=== PATIENT | female | born 1945 | race Caucasian/White ===

== ENCOUNTER 2017-08-22 14:13 | Emergency (ER) | payer OTHER ==
[2017-08-22 14:34] VITALS: TEMP 98.8
--- NOTE | 2017-08-22 14:49 | ED PDOC ---
Arrival/HPI - General Chief Complaint: High Blood Pressure Time Seen by Provider: 08/22/17 14:18 Historian: Family, Bicycle Technician (son translates) - History of Present Illness Time/Duration: Prior to Arrival Associated Symptoms (Text): 08/22/17 14:51 Son translates and reports that his mother is here visiting from [place] arriving approximately 10 days ago and will be here for approximately 4 months. She has a history of hypertension and diabetes. She took her last insulin and metformin this morning. He reports a generalized shaking episode 2 days ago which lasted for approximately 2 minutes. No seizure history. No bowel or bladder incontinence. No fever or chills. No injury or trauma. She does not have a primary caregiver here. She needs her medication. Past Medical History - Infectious Disease Hx of Infectious Diseases: None - Reproductive Menopause: Yes - Cardiac Hx Hypertension: Yes - Endocrine/Metabolic Hx Diabetes Mellitus Type 1: Yes - Psychiatric Hx Substance Use: No Family/Social History - Physician Review Nursing Documentation Reviewed: Yes Family/Social History: Unknown Family HX Smoking Status: Never Smoked Hx Alcohol Use: No Hx Substance Use: No Allergies/Home Meds Allergies/Adverse Reactions: Allergies No Known Allergies Allergy (Verified 08/22/17 14:34) Home Medications: Home Meds Medication Instructions Recorded Confirmed Insulin NPH Hum/Reg Insulin Hm 32 units SC ACB 08/22/17 08/22/17 [Humulin 70/30 70 U/ml-30 U/ml 10 ml] MetFORMIN [glucOPHAGE] 850 mg PO HS 08/22/17 08/22/17 Review of Systems - Physician Review All systems were reviewed & negative as marked: Yes - Review of Systems Constitutional: Normal Respiratory: Normal Cardiovascular: Normal Gastrointestinal: Normal Genitourinary Female: Normal Neurological: Normal Physical Exam Vital Signs Temp Pulse Pulse Resp BP Pulse Ox 08/22/17 16:25 68 18 160/85 H 98 08/22/17 14:30 65 08/22/17 14:28 98.8 F 70 16 125/78 97 Temperature: Afebrile Blood Pressure: Normal Pulse: Regular Respiratory Rate: Normal Appearance: Positive for: Well-Appearing, Non-Toxic, Comfortable Pain Distress: None Mental Status: Positive for: other (awake alert and cooperative) - Systems Exam Head: Present: Atraumatic, Normocephalic Pupils: Present: PERRL Extroacular Muscles: Present: EOMI Conjunctiva: Present: Normal Mouth: Present: Moist Mucous Membranes Pharnyx: No: ERYTHEMA, EXUDATE, TONSILS ENLARGED Neck: Present: Normal Range of Motion Respiratory/Chest: Present: Clear to Auscultation, Good Air Exchange. No: Respiratory Distress, Accessory Muscle Use Cardiovascular: Present: Regular Rate and Rhythm, Normal S1, S2. No: Murmurs Abdomen: Present: Normal Bowel Sounds. No: Tenderness, Distention, Peritoneal Signs, Rebound, Guarding Back: Present: Normal Inspection Upper Extremity: Present: Normal Inspection. No: Cyanosis, Edema Lower Extremity: Present: Normal Inspection. No: Edema Neurological: Present: GCS=15, CN II-XII Intact, Speech Normal, Motor Func Grossly Intact Skin: Present: Warm, Dry, Normal Color. No: Rashes Medical Decision Making ED Course and Treatment: 08/22/17 15:45 EKG shows normal sinus rhythm with a sinus arrhythmia and PACs with no acute ST or T-wave changes rate approximately 65 CHEST X-RAY Dictator : Diamond Lynn MD Report Date : 08/22/2017 16:02:19 IMPRESSION: Mild increased interstitial markings may reflect infection or edema. Bilateral hilar prominence. CT HEAD WITHOUT CONTRAST. Dictator : Diamond Lynn MD Report Date : 08/22/2017 16:29:09 IMPRESSION: No acute intracranial pathology identified. 08/22/17 16:32 Patient has run out of her metformin and NovoLog 70/30. She will be given prescriptions and the phone number and information for the clinic. Follow up in the ER as needed. - Lab Interpretations Lab Results: 08/22/17 14:50 08/22/17 15:35 Lab Results 08/22/17 15:35: Sodium 143, Potassium 4.5, Chloride 107, Carbon Dioxide 25, Anion Gap 16, BUN 27 H, Creatinine 1.7 H, Est GFR ( Amer) 36, Est GFR ( Non-Af Amer) 29, Random Glucose 55 L, Calcium 9.2, Magnesium 1.9, Total Bilirubin 0.3, AST 22, ALT 25, Alkaline Phosphatase 66, Lactate Dehydrogenase 447, Total Creatine Kinase 48, Troponin I < 0.01, Total Protein 7.5, Albumin 4.0 , Globulin 3.5, Albumin/Globulin Ratio 1.1 08/22/17 14:50: WBC 6.2, RBC 4.11, Hgb 10.9 L, Hct 33.7 L, MCV 82.0, MCH 26.5, MCHC 32.3, RDW 16.2 H, Plt Count 348, MPV 9.9, Gran % 41.4 L, Lymph % (Auto) 47.5 H, [place] % (Auto) 7.9 H, Eos % (Auto) 2.4, Baso % (Auto) 0.8, Gran # 2.55, Lymph # 2.9, [place] # 0.5, Eos # 0.2, Baso # 0.05 - RAD Interpretation Radiology Orders: 08/22/17 14:46 HEAD W/O CONTRAST [CT] Stat CHEST PORTABLE [RAD] Stat CT scan of the head as read by the radiologist shows no acute findings. [place] Maker: Radiologist Disposition/Present on Arrival - Present on Arrival Any Indicators Present on Arrival: No History of DVT/PE: No History of Uncontrolled Diabetes: No Urinary Catheter: No History of Decub. Ulcer: No History Surgical Site Infection Following: None - Disposition Have Diagnosis and Disposition been Completed?: Yes Diagnosis: Diabetes, Hypertension, Seizure Disposition: HOME/ ROUTINE Disposition Time: 16:33 Patient Plan: Discharge Patient Problems: Current Active Problems Problem Status Onset Diabetes Acute Hypertension Acute Seizure Acute Condition: GOOD Discharge Instructions (ExitCare): Diabetes Mellitus Type 1 in Adults (ED), Hypertension (ED), New-Onset Seizure in Adults (ED) Prescriptions: metFORMIN [glucOPHAGE] 850 mg PO DAILY #14 tab Insulin Aspart [Novolog FLEXPEN] 32 unit SQ DAILY #1 ml Referrals: [facility] [place] [facility] [place] - Follow up with primary Forms: [employer] ([place] Zealander)
[2017-08-22 15:40] LABS: BASO # 0.05 K/mm3 (0.0-2.0); BASO % 0.8 % (0.0-3.0); EOS # 0.2 (0.0-0.7); EOS % 2.4 % (1.5-5.0); GRAN # 2.55 (1.4-6.5); GRAN % 41.4 % (50.0-68.0); HEMATOCRIT 33.7 % (36.0-48.0); LYMPH # 2.9 (1.2-3.4); LYMPH % 47.5 % (22.0-35.0); MEAN CORPUSCULAR HEMOGLOBIN 26.5 pg (25.0-35.0); MEAN CORPUSCULAR HGB CONC 32.3 g/dl (31.0-37.0); MEAN PLATELET VOLUME 9.9 fl (7.0-11.0); MONO # 0.5 (0.1-0.6); MONO % 7.9 % (1.0-6.0); RED CELL DISTRIBUTION WIDTH 16.2 % (11.5-14.5); WHITE BLOOD COUNT 6.2 10^3/ul (4.5-11.0)
[2017-08-22 16:01] LABS: ALB/GLOB RATIO 1.1 (1.1-1.8); ALKALINE PHOSPHATASE 66 U/L (38-126); ALT/SGPT 25 U/L (7-56); AST/SGOT 22 U/L (14-36); BILIRUBIN,TOTAL 0.3 mg/dL (0.2-1.3); BLOOD UREA NITROGEN 27 mg/dL (7-21); CALCIUM 9.2 mg/dL (8.4-10.5); CARBON DIOXIDE 25 mmol/L (21-33); CHLORIDE 107 mmol/L (98-107); GFR AFRICAN-AMERICAN 36; GLUCOSE,RANDOM 55 mg/dL (70-110); MAGNESIUM 1.9 mg/dL (1.7-2.2); POTASSIUM 4.5 mmol/L (3.6-5.0); SODIUM 143 mmol/L (132-148); TOTAL PROTEIN 7.5 g/dL (5.8-8.3)
--- NOTE | 2017-08-22 16:03 | RAD ---
HISTORY: seizure COMPARISON: None available. TECHNIQUE: Chest, one view. FINDINGS: Examination limited by habitus. LUNGS: Mild increased interstitial markings may reflect infection or edema. Bilateral hilar prominence. PLEURA: No significant pleural effusion identified. No definite pneumothorax . CARDIOVASCULAR: Heart size appears top normal. OSSEOUS STRUCTURES: Degenerative changes. VISUALIZED UPPER ABDOMEN: Unremarkable. OTHER FINDINGS: None. IMPRESSION: Mild increased interstitial markings may reflect infection or edema. Bilateral hilar prominence.
[2017-08-22 16:16] LABS: TROPONIN I < 0.01 ng/mL
[2017-08-22 16:26] VITALS: BP 160/85; RESP 18; O2SAT 98
[2017-08-22 16:28] VITALS: PULSE 65
--- NOTE | 2017-08-22 16:30 | CT ---
PROCEDURE: CT HEAD WITHOUT CONTRAST. HISTORY: seizure COMPARISON: None available. TECHNIQUE: Axial computed tomography images were obtained through the head/brain without intravenous contrast. Radiation dose: Total exam DLP = 823.45 mGy-cm. This CT exam was performed using one or more of the following dose reduction techniques: Automated exposure control, adjustment of the mA and/or kV according to patient size, and/or use of iterative reconstruction technique. FINDINGS: HEMORRHAGE: No intracranial hemorrhage. BRAIN: Diffuse atrophy with prominence of the ventricles and sulci noted. No mass effect or edema. Mild scattered white matter hypodensities, which are nonspecific, but often seen with chronic microvascular ischemic disease. Please note that MRI with diffusion imaging is more sensitive in the detection of acute ischemic event. VENTRICLES: No hydrocephalus. CALVARIUM: Unremarkable. PARANASAL SINUSES: Unremarkable as visualized. No significant inflammatory changes. MASTOID AIR CELLS: Unremarkable as visualized. No inflammatory changes. OTHER FINDINGS: None. IMPRESSION: No acute intracranial pathology identified.
--- NOTE | 2017-08-23 19:52 | CARD ---
APPROVED REPORT EKG Measurement Heart [id number] <Conclusion> Sinus rhythm with marked sinus arrhythmia Otherwise normal ECG
== END 2017-08-22 16:49 | disposition home or self-care (01) ==
LOC: ED 14:13
DX: I10 Essential (primary) hypertension (principal); E11.9 Type 2 diabetes mellitus without complications; R56.9 Unspecified convulsions

== ENCOUNTER 2017-11-04 10:59 | Emergency (ER) | payer OTHER ==
[2017-11-04 11:28] VITALS: TEMP 98.1
[2017-11-04 12:20] VITALS: BP 153/78; PULSE 69; RESP 18; O2SAT 98
--- NOTE | 2017-11-04 12:20 | ED PDOC ---
Arrival/HPI - General Chief Complaint: Headache Time Seen by Provider: 11/04/17 11:08 Historian: Patient, Family, Other (son translating ) - History of Present Illness Narrative History of Present Illness (Text): you were here with your and son and have a history of catarct surgery in both your eyes about 1 year ago, were treated in the ED today for pressure in both eyes and change in vision but otherwise without any pain or foreign body sensation in your eyes/nausea/vomiting/headache/dizziness/difficulty breathing/chest pain/abdomen pain/numbness/tingling/loss of limb function/pain with urination. 11/04/17 12:15 Past Medical History - Provider Review Nursing Documentation Reviewed: Yes - Travel History Have you recently traveled outside [place] w/in the past 3 mons?: Yes - Infectious Disease Hx of Infectious Diseases: None - Reproductive Menopause: Yes - Cardiac Hx Hypertension: Yes - Endocrine/Metabolic Hx Diabetes Mellitus Type 1: Yes - Psychiatric Hx Substance Use: No Family/Social History - Physician Review Nursing Documentation Reviewed: Yes Family/Social History: No Known Family HX Smoking Status: Never Smoked Hx Alcohol Use: No Hx Substance Use: No Allergies/Home Meds Allergies/Adverse Reactions: Allergies No Known Allergies Allergy (Verified 08/22/17 14:34) Home Medications: Home Meds Medication Instructions Recorded Confirmed Insulin NPH Hum/Reg Insulin Hm 32 units SC ACB 08/22/17 11/04/17 [Humulin 70/30 70 U/ml-30 U/ml 10 ml] Review of Systems - Review of Systems Constitutional: Normal Eyes: Vision Changes, Photophobia, Other (pressure) ENT: Normal Respiratory: Normal Cardiovascular: Normal Gastrointestinal: Normal Genitourinary Female: Normal Musculoskeletal: Normal Skin: Normal Neurological: Normal Endocrine: Normal Hemo/Lymphatic: Normal Psychiatric: Normal Physical Exam Vital Signs Reviewed: Yes Vital Signs Temp Pulse Resp BP Pulse Ox 11/04/17 11:14 98.1 F 72 16 155/82 H 97 Temperature: Afebrile Blood Pressure: Hypertensive Pulse: Regular Respiratory Rate: Normal Appearance: Positive for: Well-Appearing, Non-Toxic, Comfortable Pain Distress: None Mental Status: Positive for: Alert and Oriented X 3 - Systems Exam Head: Present: Atraumatic, Normocephalic Pupils: Present: PERRL, Other (b/l visual acuity 20/30, magnification without foriegn body, b/l pink eyelid, tonometry right 2, 4, 6, and right 1, 3, 4) Extroacular Muscles: Present: EOMI Conjunctiva: Present: Normal Ears: Present: Normal Mouth: Present: Moist Mucous Membranes Pharnyx: Present: Normal Nose (External): Present: Atraumatic Nose (Internal): Present: Normal Inspection Respiratory/Chest: Present: Clear to Auscultation, Good Air Exchange Cardiovascular: Present: Regular Rate and Rhythm Abdomen: No: Tenderness, Distention, Normal Bowel Sounds, Peritoneal Signs, Rebound, Guarding, McBurney's Point Tender, Rovsing's Sign Present, Hernias, Feeding Tubes, Ostomy Tubes, Mass/Organomegaly, Scars, Other Back: Present: Normal Inspection Upper Extremity: Present: Normal Inspection Lower Extremity: Present: Normal Inspection Neurological: Present: GCS=15, CN II-XII Intact, Speech Normal, Motor Func Grossly Intact, Gait Normal Skin: Present: Warm, Normal Color Psychiatric: Present: Alert, Oriented x 3, Normal Insight, Normal Concentration Medical Decision Making ED Course and Treatment: you were here with your and son and have a history of catarct surgery in both your eyes about 1 year ago, were treated in the ED today for pressure in both eyes and change in vision but otherwise without any pain or foreign body sensation in your eyes/red eyes/nausea/vomiting/headache/dizziness/ difficulty breathing/chest pain/abdomen pain/numbness/tingling/loss of limb function/pain with urination. You were otherwise breathing easily, smiling with your son and , good strength/sensation, walking easily, clear lungs, no abdomen tenderness, both eyes vision 20/30, no foreign objects, pink eyelids and no high pressures in either eyes, no sign of eye infection, no fever temp 98.1, stable heart rate 72, stable breathing rate 16, excellent oxygen level 100 % room air, elevated blood pressure 155/82 which we recommend repeat in 2-3 days primary care office to determine further treatment, counselled to monitor vision for any worsening changes and thus discharged home with son and . 1. Recommend follow-up primary care 1-2 days to review symptoms and referral to ophthalmology clinic to ensure further care. 4. If any worsening pain, fever, chills, nausea, vomiting, difficulty breathing, numbness, loss of limb function , pain with urination or any medical condition then return to the ED. 11/04/17 12:23 Disposition/Present on Arrival - Present on Arrival Any Indicators Present on Arrival: No History of DVT/PE: No History of Uncontrolled Diabetes: No Urinary Catheter: No History of Decub. Ulcer: No History Surgical Site Infection Following: None - Disposition Have Diagnosis and Disposition been Completed?: Yes Diagnosis: Bilateral eye complaint Disposition: HOME/ ROUTINE Disposition Time: 12:27 Patient Plan: Discharge Condition: STABLE Additional Instructions: you were here with your and son and have a history of catarct surgery in both your eyes about 1 year ago, were treated in the ED today for pressure in both eyes and change in vision but otherwise without any pain or foreign body sensation in your eyes/red eyes/nausea/vomiting/headache/dizziness/ difficulty breathing/chest pain/abdomen pain/numbness/tingling/loss of limb function/pain with urination. You were otherwise breathing easily, smiling with your son and , good strength/sensation, walking easily, clear lungs, no abdomen tenderness, both eyes vision 20/30, no foreign objects, pink eyelids and no high pressures in either eyes, no sign of eye infection, no fever temp 98.1, stable heart rate 72, stable breathing rate 16, excellent oxygen level 100 % room air, elevated blood pressure 155/82 which we recommend repeat in 2-3 days primary care office to determine further treatment, counselled to monitor vision for any worsening changes and thus discharged home with son and . 1. Recommend follow-up primary care 1-2 days to review symptoms and referral to ophthalmology clinic to ensure further care. 4. If any worsening pain, fever, chills, nausea, vomiting, difficulty breathing, numbness, loss of limb function , pain with urination or any medical condition then return to the ED. Referrals: Factualashly Jaimes, [Primary Care Provider] - Follow up with primary Baltazar Contreras [Staff Provider] - Follow up with primary Forms: [employer] (Slovak)
== END 2017-11-04 12:33 | disposition home or self-care (01) ==
LOC: ED 10:59
DX: H57.8 Other specified disorders of eye and adnexa (principal)

== ENCOUNTER 2019-03-04 19:49 | Emergency (ER) | payer SELFPAY ==
[2019-03-04 20:00] VITALS: BMI 32.1
[2019-03-04 20:06] VITALS: PULSE 73; RESP 18
--- NOTE | 2019-03-04 20:13 | ED PDOC ---
Arrival/HPI - General Chief Complaint: Dizziness/Lightheaded Time Seen by Provider: 03/04/19 20:08 Historian: Patient, Family - History of Present Illness Narrative History of Present Illness (Text): 03/04/19 20:17 73 year old female, with past medical history of hypertension, diabetes, and cataract surgery, presents to emergency department for cough and dizziness since earlier today. Family notes that patient passed out for "10-15 minutes yesterday" and began shaking today. Patient denies any fevers, headache, chest pain, shortness of breath, abdominal pain, nausea, vomiting, diarrhea, back pain, neck pain, or any other complaints. HPI limited, as patient is poor historian. 03/04/19 23:22 Time/Duration: Other (today) Symptom Onset: Gradual Symptom Course: Unchanged Activities at Onset: Light Context: Home Past Medical History - Provider Review Nursing Documentation Reviewed: Yes - Infectious Disease Hx of Infectious Diseases: None - Cardiac Hx Hypertension: Yes - Endocrine/Metabolic Hx Diabetes Mellitus Type 1: Yes Hx Diabetes Mellitus Type 2: Yes - Psychiatric Hx Substance Use: No - Anesthesia Hx Anesthesia: No Family/Social History - Physician Review Nursing Documentation Reviewed: Yes Family/Social History: Unknown Family HX Smoking Status: Never Smoked Hx Alcohol Use: No Hx Substance Use: No Allergies/Home Meds Allergies/Adverse Reactions: Allergies No Known Allergies Allergy (Verified 08/22/17 14:34) Home Medications: Home Meds Medication Instructions Recorded Confirmed Insulin NPH Hum/Reg Insulin Hm 32 units SC ACB 08/22/17 11/04/17 [Humulin 70/30 70 U/ml-30 U/ml 10 ml] Review of Systems - Physician Review All systems were reviewed & negative as marked: Yes - Review of Systems Constitutional: Other (shaking ). absent: Fevers Respiratory: Cough. absent: SOB Cardiovascular: absent: Chest Pain Gastrointestinal: absent: Abdominal Pain, Diarrhea, Nausea, Vomiting Genitourinary Female: absent: Urine Output Changes Musculoskeletal: absent: Back Pain, Neck Pain Skin: absent: Rash Neurological: Dizziness. absent: Headache Physical Exam Vital Signs Reviewed: Yes Vital Signs Temp Pulse Resp BP Pulse Ox 03/04/19 20:05 98.1 F 73 18 129/71 96 Temperature: Afebrile Blood Pressure: Normal Pulse: Regular Respiratory Rate: Normal Appearance: Positive for: Well-Appearing, Non-Toxic, Comfortable Pain Distress: None Mental Status: Positive for: Alert and Oriented X 3 - Systems Exam Head: Present: Atraumatic, Normocephalic Pupils: Present: PERRL Extroacular Muscles: Present: EOMI Conjunctiva: Present: Normal Mouth: Present: Moist Mucous Membranes Neck: Present: Normal Range of Motion Respiratory/Chest: Present: Clear to Auscultation, Good Air Exchange. No: Respiratory Distress, Accessory Muscle Use Cardiovascular: Present: Regular Rate and Rhythm, Normal S1, S2. No: Murmurs Abdomen: No: Tenderness, Distention, Peritoneal Signs Back: Present: Normal Inspection Upper Extremity: Present: Normal Inspection. No: Cyanosis, Edema Lower Extremity: Present: Normal Inspection. No: Edema Neurological: Present: GCS=15, CN II-XII Intact, Speech Normal Skin: Present: Warm, Dry, Normal Color. No: Rashes Psychiatric: Present: Alert, Oriented x 3, Normal Insight, Normal Concentration Medical Decision Making ED Course and Treatment: 03/04/19 20:19 Impression: 73 year old female presents to emergency department for cough, dizziness, and shaking since earlier today. Plan: -- CT Head -- EKG -- Labs -- Chest X-ray -- Urinalysis -- Reassess and disposition Prior Visits: Notes and results from previous visits were reviewed. Progress Notes: EKG: Ordered, reviewed, and independently interpreted the EKG. Rate : 72 BPM Rhythm : NSR Interpretation : No ST-segment elevations or depressions, no T-wave changes 03/04/19 22:56 Leaving Against Medical Advice (AMA): This patient is choosing to leave against medical advice. I have personally explained to the patient that choosing to do so may result in permanent bodily harm or . I have discussed at great length that without further evaluation and monitoring there may be unforeseen circumstances and/or deterioration causing permanent bodily harm or as a result of their choice. The patient is alert, oriented, and shows the mental capacity to make clear decisions regarding the patients health care at this time. The patient continues to wish to leave against medical advice. In light of the patients decision to leave AMA, follow-up has been arranged and the patient is aware of the importance of following up as instructed. The patient has been advised that they should return to the ED immediately if they change their mind at any time, or if their condition begins to change or worsen in any way. 03/04/19 23:22 pt had reported syncope yesterday. in er tdoay, neuro intact, smiling innad. labs ct neg. i asked pt to be admitted and observed for syncope as etiology unclear. pt and son refuse. pt requests son for translation. sign ama - RAD Interpretation Radiology Orders: 03/04/19 20:12 CHEST PORTABLE [RAD] Stat - Scribe Statement The provider has reviewed the documentation as recorded by the Scribe Maribel Marquez All medical record entries made by the Scribe were at my direction and personally dictated by me. I have reviewed the chart and agree that the record accurately reflects my personal performance of the history, physical exam, medical decision making, and the department course for this patient. I have also personally directed, reviewed, and agree with the discharge instructions and disposition. Disposition/Present on Arrival - Present on Arrival Any Indicators Present on Arrival: No History of DVT/PE: No History of Uncontrolled Diabetes: No Urinary Catheter: No History of Decub. Ulcer: No History Surgical Site Infection Following: None - Disposition Have Diagnosis and Disposition been Completed?: Yes Diagnosis: Syncope, Dizziness Disposition: AGAINST MEDICAL ADVICE Disposition Time: 20:00 Patient Problems: Current Active Problems Problem Status Onset Dizziness Acute Syncope Acute Condition: UNKNOWN Discharge Instructions (ExitCare): Syncope (Fainting), Leaving Against Medical Advice, Syncope (ED) Additional Instructions: return to er with worsening symptoms or concerns. Referrals: Director Records Management Service [Outside] - Follow up with primary [facility] [place] - Follow up with primary [facility] at [facility] [Outside] - Follow up with primary Forms: [employer] (S[place] Leonean)
[2019-03-04 20:47] LABS: BASO # 0.01 K/mm3 (0.0-2.0); BASO % 0.1 % (0.0-3.0); EOS % 0.1 % (1.5-5.0); HEMOGLOBIN 11.2 g/dL (12.0-16.0); LYMPH # 1.9 (1.2-3.4); LYMPH % 25.5 % (22.0-35.0); MEAN CELL VOLUME 83.1 fl (80.0-105.0); MEAN CORPUSCULAR HEMOGLOBIN 26.7 pg (25.0-35.0); MEAN CORPUSCULAR HGB CONC 32.2 g/dl (31.0-37.0); MEAN PLATELET VOLUME 9.5 fl (7.0-11.0); MONO # 0.3 (0.1-0.6); MONO % 3.9 % (1.0-6.0); RBC 4.19 10^6/uL (3.5-6.1); RED CELL DISTRIBUTION WIDTH 15.7 % (11.5-14.5); WHITE BLOOD COUNT 7.4 10^3/uL (4.5-11.0)
[2019-03-04 20:53] LABS: INR 1.09; PARTIAL THROMBOPLASTIN TIME 29.2 Seconds (26.9-38.3); PROTHROMBIN TIME 12.1 SECONDS (9.4-12.5)
[2019-03-04 20:57] LABS: ALB/GLOB RATIO 1.2 (1.1-1.8); ALBUMIN 4.2 g/dL (3.0-4.8); ALT/SGPT 19 U/L (7-56); AST/SGOT 45 U/L (14-36); BLOOD UREA NITROGEN 33 mg/dL (7-21); CALCIUM 10.1 mg/dL (8.4-10.5); GFR NON-AFRICAN AMERICAN 24; LIPASE 180 U/L (23-300)
[2019-03-04 21:09] LABS: TROPONIN I < 0.01 ng/mL
[2019-03-04 23:38] VITALS: BP 128/68; TEMP 98; O2SAT 98
--- NOTE | 2019-03-05 08:44 | CT ---
Date of service: 03/04/2019 PROCEDURE: CT HEAD WITHOUT CONTRAST. HISTORY: syncope COMPARISON: 08/22/2017 TECHNIQUE: Axial computed tomography images were obtained through the head/brain without intravenous contrast. Radiation dose: Total exam DLP = 823.2 mGy-cm. This CT exam was performed using one or more of the following dose reduction techniques: Automated exposure control, adjustment of the mA and/or kV according to patient size, and/or use of iterative reconstruction technique. FINDINGS: HEMORRHAGE: No intracranial hemorrhage. BRAIN: No mass effect or edema. No atrophy or chronic microvascular ischemic changes. VENTRICLES: Unremarkable. No hydrocephalus. CALVARIUM: Unremarkable. PARANASAL SINUSES: Unremarkable as visualized. No significant inflammatory changes. MASTOID AIR CELLS: Unremarkable as visualized. No inflammatory changes. OTHER FINDINGS: The report concurs with the preliminary [facility] report IMPRESSION: No acute intracranial findings
--- NOTE | 2019-03-05 10:52 | RAD ---
Date of service: 03/04/2019 HISTORY: syncope COMPARISON: 08/22/2017 TECHNIQUE: 1 view obtained. FINDINGS: LUNGS: No active pulmonary disease. PLEURA: No significant pleural effusion identified, no pneumothorax apparent. CARDIOVASCULAR: Aortic calcification Mild cardiomegaly no pulmonary vascular congestion. OSSEOUS STRUCTURES: No significant abnormalities. VISUALIZED UPPER ABDOMEN: Normal. OTHER FINDINGS: None. IMPRESSION: No active disease.
--- NOTE | 2019-03-05 19:28 | CARD ---
APPROVED REPORT Date of service: 03/04/2019 EKG Measurement Heart [id number] <Conclusion> Poor data quality, interpretation may be adversely affected Normal sinus rhythm with sinus arrhythmia Normal ECG
== END 2019-03-04 23:38 | disposition left against medical advice (07) ==
LOC: ED 19:49
DX: R42 Dizziness and giddiness (principal); R55 Syncope and collapse; I10 Essential (primary) hypertension; E11.9 Type 2 diabetes mellitus without complications